=== PATIENT | male | born 1975 | race Caucasian/White ===

== ENCOUNTER 2016-12-26 14:22 | Emergency (ER) | payer OTHER ==
[2016-12-26 14:32] VITALS: RESP 18; TEMP 98.8
[2016-12-26] MEDS ORDERED: HYDROmorphone 2 MG/ML 1 ML SYRINGE IVP STA (14:36)
[2016-12-26] MEDS ORDERED: DIPH,PERTUS(ACELL)TETVAC-LF 0.5 ML VIAL IM ONE (14:36)
[2016-12-26] MEDS ORDERED: ceFAZolin 2 GM in SODIUM CHLORIDE 0.9% 100 ML IVPB STA (14:40)
[2016-12-26] MEDS ORDERED: BUPIVACAINE (PF) 0.25% 30 ML VIAL MISCELLANE STA (14:58)
--- NOTE | 2016-12-26 15:20 | ED ---
General Adult HPI - General Chief complaint: Extremity Injury, Upper Stated complaint: nail in lt hand Time Seen by Provider: 12/26/16 14:33 Source: patient, RN notes reviewed Mode of arrival: ambulatory Limitations: no limitations - History of Present Illness Initial comments: This is a 41-year-old male who presents to the emergency department with chief complaint of nail in left hand. Patient states that approximately an hour and a half prior to arrival he was holding onto a wooden board with his left hand and accidentally shot a nail into the palm of his left hand. Patient currently rates his pain as 11/10. He states that there was minimal bleeding. He reports he can feel the end of the nail at the dorsal aspect of his left hand. He states that sensation is intact throughout his entire hand, however it is difficult and painful to move digits 3-5. Patient states he is unaware if he is up-to-date with his tetanus vaccination. Denies fever, chills, chest pain, shortness of breath, abdominal pain, nausea or vomiting, constipation or diarrhea, dysuria or hematuria, numbness or tingling, headache or vision changes. - Related Data Previous Rx's Medication Instructions Recorded Cephalexin [Keflex] 500 mg PO Q12HR #20 cap 12/26/16 Hydrocodone/Acetaminophen [[place]arrows 1 tab PO Q4HR PRN #20 tab 12/26/16 5-325] Allergies Allergy/AdvReac Type Severity Reaction Status Date / Time No Known Allergies Allergy Verified 12/26/16 14:30 Review of Systems ROS Statement: Those systems with pertinent positive or pertinent negative responses have been documented in the HPI. ROS Other: All systems not noted in ROS Statement are negative. Past Medical History Past Medical History: Asthma, GERD/Reflux History of Any Multi-Drug Resistant Organisms: None Reported Past Surgical History: No Surgical Hx Reported Additional Past Surgical History / Comment(s): WISDOM TEETH REMOVED Past Anesthesia/Blood Transfusion Reactions: Family History of Problems w/ Anesthesia Additional Past Anesthesia/Blood Transfusion Reaction / Comment(s): "MOM GETS LOW BLOOD PRESSURE WITH ANESTHESIA " Past Psychological History: No Psychological Hx Reported Smoking Status: Current every day smoker Past Alcohol Use History: Occasional Past Drug Use History: None Reported - Past Family History Brother(s) Family Medical History: Deep Vein Thrombosis (DVT) Father Family Medical History: Cancer Additional Family Medical History / Comment(s): LYMPHOMA General Exam - General Exam Comments Initial Comments: General: Awake and alert, well-developed; in no apparent distress. HEENT: Head atraumatic, normocephalic. Pupils are equal, round and reactive to light. Extraocular movements intact. Neck: Supple. Normal ROM. Cardiovascular: Regular rate and rhythm. No murmurs, rubs or gallops. Chest symmetrical. Respiratory: Lungs clear to auscultation bilaterally. No wheezes, rales or rhonchi. Normal respiratory effort with no use of accessory muscles. Musculoskeletal: Nail enters patient's left palm proximal to second digit extending at an angle proximally to left fifth digit. End of nail is palpable on dorsal surface of left hand. Radial pulses 2+ equal and palpable bilaterally. Sensation is intact. Active range of motion of fingers are intact however there is difficulty extending and flexing digits 3-5. kin: [place], warm and dry without rashes or lesions. Neurological: Alert and oriented x3. CN II-XII grossly intact. Speech is fluent and answers are appropriate. No focal neuro deficits. Psychiatric: Normal mood and affect. No overt signs of depression or anxiety noted. Limitations: no limitations Course Vital Signs 12/26/16 14:30 Temperature 98.8 F Pulse Rate 78 Respiratory 18 Rate Blood Pressure 142/82 O2 Sat by Pulse 97 Oximetry Medical Decision Making - Medical Decision Making This is a 41-year-old male who presents with complaint of nail in palm of left hand. At approximately 1530 an attempt was made to remove the nail from the hand but it was unsuccessful. After re-review of the x-ray orthopedics was consulted. Orthopedics was consulted and recommended that nail be removed in the ER as there is no indication for open surgery. At approximately 1630 nail was removed from the hand after numbing with bupivacaine and lidocaine. There was moderate amount of bleeding but it is well-controlled at this time. Patient will be discharged home with a prescription for Keflex to be taken for 10 days. He received an up-to-date tetanus booster while in the ED as well as received Ancef and Dilaudid for pain management. Patient is in no acute distress at this time and is in agreement to the plan. He voices understanding. All questions were answered. He is provided with a referral to orthopedics. - Radiology Data Radiology results: report reviewed Left hand x-ray findings: There is a foreign body compatible with a nail extending across the metacarsals of the second through fifth digits. Could not exclude a tear within the substance of the bone of the fourth or fifth digit. The joint spaces are preserved and there is no dislocation. Disposition Clinical Impression: Injury of left palm by nail gun Disposition: HOME SELF-CARE Condition: Good Instructions: Soft Tissue Foreign Body (ED) Additional Instructions: Please take medications as prescribed. Please follow-up with orthopedics in 1- 2 days. Please follow up with primary care provider within 1-2 days. Return to emergency department if symptoms should worsen or any concerns arise. Prescriptions: Cephalexin [Keflex] 500 mg PO Q12HR #20 cap Hydrocodone/Acetaminophen [[place] 5-325] 1 tab PO Q4HR PRN #20 tab PRN Reason: Pain Referrals: Mary Scott MD [Primary Care Provider] - 1-2 days Tu Damon DO [Doctor of Osteopathic Medicine] - 1-2 days Time of Disposition: 16:46
--- NOTE | 2016-12-26 15:24 | XR ---
EXAMINATION TYPE: XR hand complete LT DATE OF EXAM: 12/26/2016 COMPARISON: NONE HISTORY: Pain TECHNIQUE: Three views are submitted. FINDINGS: There is a foreign body compatible with a nail extending across the metatarsals of the second through fifth digits. Could not exclude a tear within the substance the bone of the fourth or fifth digit. T he joint spaces are preserved and there is no dislocation. IMPRESSION: 1. Foreign body as discussed above.
[2016-12-26 17:19] VITALS: BP 138/70; PULSE 77
== END 2016-12-26 17:09 | disposition home or self-care (01) ==
LOC: EC 14:22
DX: S60.552A Superficial foreign body of left hand, initial encounter (principal); F17.200 Nicotine dependence, unspecified, uncomplicated; Z23 Encounter for immunization; W45.0XXA Nail entering through skin, initial encounter
CPT/HCPCS: 99283 ×2; 96365 ×2; 96375 ×2; 90471 ×2; 73130; 90715; J1170; J0690

== ENCOUNTER → 2018-05-21 | Outpatient (CLI) | payer OTHER ==
--- NOTE | 2018-05-21 11:26 | XR ---
EXAM TYPE: LUMBAR SPINE X RAY SERIES COMPARISON: NONE HISTORY: Back pain TECHNIQUE: 4 views are submitted. FINDINGS: Alignment is anatomic. The pedicles are intact. The transverse processes are intact. There is no s pondylolysis or spondylolisthesis. Surgical clips in the right upper quadrant. Diffuse osteopenia. A rthropathy of the facet joints at levels L3-S1. Is a chronic appearing wedge deformity L1 and T12. Hy pertrophic spurring and multilevel degenerative disc disease. IMPRESSION: 1. Multilevel degenerative disc disease. There are mild wedge fracture of T12 and L1 likely subacute to chronic. Correlate with MRI.
== END | disposition home or self-care (01) ==
LOC: RADXRYALE 10:57
PROVIDERS: ATTEND Internal Medicine
DX: S32.010A Wedge compression fracture of first lumbar vertebra, initial encounter for closed fracture (principal); M51.36 Other intervertebral disc degeneration, lumbar region
CPT/HCPCS: 72110

== ENCOUNTER → 2018-06-04 | Outpatient (CLI) | payer OTHER ==
--- NOTE | 2018-06-04 11:56 | MR ---
EXAMINATION TYPE: MR lumbar spine wo con DATE OF EXAM: 06/04/2018 COMPARISON: 05/21/2018 HISTORY: Low back pain into rt buttocks, Fell on ice TECHNIQUE: Multiplanar, multisequence images of the lumbar spine were acquired. FINDINGS: The lumbar spine vertebral bodies maintain normal alignment. There is mild compression defo rmity of the anterior endplate of L1 with height loss of approximately 20%. There is no bone marrow e willard and therefore this is a chronic finding without retropulsion. Small anterior osteophytes are see n throughout the lumbar spine. L1-L2: There is a small broad-based disc bulge without spinal canal stenosis nor neural foraminal annie rowing. L2-L3: There is a small central disc herniation/protrusion and mild facet arthropathy narrowing the v entral subarachnoid space and minimally impressing upon the ventral thecal sac without significant sp inal canal stenosis. No neural foraminal narrowing. L3-L4: There is facet arthropathy and ligamentum flavum buckling and comminution with a broad-based d isc bulge mildly narrowing the transverse dimension of the spinal canal. No neural foraminal narrowin g. L4-L5: There is a broad-based disc bulge and facet arthropathy with ligamentum flavum buckling result ing in very minimal neural foraminal narrowing. No spinal canal stenosis. L5-S1: Facet arthropathy and disc desiccation is seen. No spinal canal stenosis nor neural foraminal narrowing. IMPRESSION: 1. Chronic mild compression deformity of the L1 vertebral body without retropulsion. No bone marrow e willard. 2. Small central disc herniation at L2-L3 minimally narrowing the ventral subarachnoid space without significant spinal canal stenosis nor neural foraminal narrowing. 3. Mild transverse dimension narrowing of the spinal canal at L3-L4 secondary to ligamentum flavum bu ckling and facet arthropathy. 4. Mild multilevel degenerative disc disease of the lumbar spine resulting in minimal neural foramina l narrowing bilaterally at L4-L5.
== END | disposition home or self-care (01) ==
LOC: RADMRIMAIN 10:50
PROVIDERS: ATTEND Internal Medicine
DX: M48.061 Spinal stenosis, lumbar region without neurogenic claudication (principal); M51.26 Other intervertebral disc displacement, lumbar region; M51.36 Other intervertebral disc degeneration, lumbar region; M43.8X6 Other specified deforming dorsopathies, lumbar region; M46.96 Unspecified inflammatory spondylopathy, lumbar region; M24.28 Disorder of ligament, vertebrae
CPT/HCPCS: 72148

== ENCOUNTER → 2018-06-27 | Outpatient (CLI) | payer OTHER ==
[2018-06-26 14:36] VITALS: BMI 35.9
[2018-06-27 10:02] VITALS: BP 160/100; PULSE 89; RESP 18
--- NOTE | 2018-06-27 11:10 | P.PAINCN ---
History of Present Illness - Reason for Consult Consult date: 06/27/18 - History of Present Illness initial consultation visit for this 43-year-old man with a chronic history of severe low back pain, pain started 1 years ago, after he fell on ice, he continued to have severe low back pain, the pain is constant and increases with any activity patient reported that he never had any surgery on his back he never had any interventional pain management, and he used muscle relaxants Flexeril 10 mg twice a day and Motrin, he has no benefit from it, the pain is constant and increases with any activity, he denies any motor or sensory deficit and he denies any numbness or tingling sensation in his lower extremities, no fever or night sweats, he never tried physical therapy Past Medical History Past Medical History: Asthma, GERD/Reflux, Hypertension History of Any Multi-Drug Resistant Organisms: None Reported Past Surgical History: Cholecystectomy Additional Past Surgical History / Comment(s): WISDOM TEETH REMOVED Past Anesthesia/Blood Transfusion Reactions: Family History of Problems w/ Anesthesia Additional Past Anesthesia/Blood Transfusion Reaction / Comm: "MOM GETS LOW BLOOD PRESSURE WITH ANESTHESIA " Past Psychological History: No Psychological Hx Reported Smoking Status: Current every day smoker Past Alcohol Use History: Occasional Additional Past Alcohol Use History / Comment(s): STARTED SMOKING AT AGE 18 S MOKES 3/4 PPD Past Drug Use History: None Reported - Past Family History Brother(s) Family Medical History: Deep Vein Thrombosis (DVT) Father Family Medical History: Cancer Additional Family Medical History / Comment(s): LYMPHOMA Medications and Allergies Home Medications Medication Instructions Recorded Confirmed Type Albuterol Inhaler [Ventolin Hfa 1 - 2 puff INHALATION RT-Q6H PRN 06/27/18 06/27/18 History Inhaler] Albuterol Sulfate [Accuneb] 0 mg INHALATION DIRECTED PRN 06/27/18 06/27/18 History Triamterene-Hctz 37.5-25Mg 1 cap PO DAILY 06/27/18 06/27/18 History [Dyazide 37.5-25 Capsule] busPIRone HCl [Buspar] 10 mg PO BID 06/27/18 06/27/18 History Allergies Allergy/AdvReac Type Severity Reaction Status Date / Time No Known Allergies Allergy Verified 06/26/18 14:30 Physical Exam Vitals: Vital Signs Pulse Resp BP Pulse Ox 06/27/18 09:54 89 18 160/100 96 Social history : smoker , ETOH social , NO Illegal drugs use . Review of Systems : - Constitutional : no chills , no fever , no night sweats , - Ears : no ear discharge , no change in hearing -Nose, Mouth ,Throat ; no bleeding gums, no sore throat , no epistaxis , -Cardiovascular : Denies chest pain, , no orthopnea , no palpitation -Respiratory : Denies cough , no dyspnea , no hemoptysis -Gastrointestinal :, no change in bowel habits , no coffee- ground emesis . -Genitourinary : No hematuria , no discharge , no incontinence, -Musculoskeletal : No gait dysfunction , report low back pain , - Neurological : no ataxia , no tremor , no sezure , -Psychatric , no suicidal ideation no hallucination - Endocrine : no cold intolerence , no polyuria , no polydypsia , -Hematologic : no easy bleeding , no easy brusing , -Allergic / immunology : no angioedema , no wheezing ,no allergic rhinitis -Integumentary : no brttle nails , no change hair / nails , no foot/leg ulcers . Physical Examinations : -Constitutional : Cooperative , not in acute distress . -HEENT : nech ; supple , no Lymphadenopathy , no Thyromegaly , :eyes , no icterus, no photophobia . ENT : , normal oropharynx , no Thrush - Respiratory : Chest clear to auscultations Bilaterally , no wheezing . - Cardiovascular : regular rate and rhythem , S1 , S2 , no S3 , no S4. - Gastrointestinal: abdomen soft no tenderness , no organomegally . - Genitourinary : Defferred . -Integumentary : No cellulitis , no ulcers , normal skin turgor , no cyanotic . - neurologic : Cranial nerve II to XII intact , no focal neurological deffecit -psychatric : alert , oriented X 3 , appropriate affect , intact judgment and insight . -Lymphatic : no Lymphadenopathy. - musculoskeltal: abnormal gait Trigger point identified in the lower thoracic area paravertebral muscles . Lumber spine moter stegnth lower extremities ,thigh and legs 5/5 Right side , 5/5 Left side deep tendon reflexes : normal Knee Jerk , normal ankle Jerk positive lumber facet Loading Test Range of motion of the lumbar spine Flexion 30 degrees, extension 10 degrees strait leg raising test , positive at 30 degree Fabere test positive RT and positive LT . Results Comments: MRI of the lumbar spine= multilevel lumbar bulging disc disease, from L2 to S1, multilevel lumbar facet arthropathy Assessment and Plan Plan: Assessment and plan= multilevel lumbar degenerative disc disease and lumbar spondylosis with lumbar facet arthropathy Myofascial pain syndrome lower thoracic area. Patient will be good candidate to have diagnostic medial branch block lumbar area L2-3/L34/L4 5/L5-S1 x2 and benefits positive and do Radiofrequency ablation of the medial branch. She could benefit from Flexeril 10 mg 3 times a day Time with Patient: Greater than 30 PQRS Measure Charge Sheet Measure #130: Documentation of Current Meds in Medical Chart: Patient's medications documented in chart Measure #226: Tobacco Use: Screen & Cessation Intervention: Pt screened for tobacco use AND intervention given Measure #111: Pneumonia Vaccination: Pneumococcal vaccine administered or previously received Measure #47: Advance Care Plan: Advance care planning discussed & documented, pt chose/unable to give Measure #412: Opioid Treatment Agreement: No documentation of signed opioid treatment agreement Measure #408: Opioid Therapy Follow-up Evaluation: Patient had NO f/u eval minimum every 3 months during opioid therapy Measure #317: Preventitive Care & Scrn High Bld Press & F/U: Pre-hypertensive or hypertensive BP documented, pt will f/u with PCP Measure #128: Body Mass Index (BMI) Screening & Follow-up: BMI documented ABOVE normal parameters - f/u documented Measure #131: Pain Assessment & Follow-up: Pain positive & plan documented, Follow-up scheduled Measure #431: Unhealthy Alcohol Use Preventative Care & Scrn: Patient not identified as an unhealthy alcohol user PQRS Narrative: Smoking Status Current every day smoker Do You Want the Pneumonia Vaccine Up to Date Vaccine AT THIS TIME? Blood Pressure 160/100 Pain Intensity [Lower Back] 9 Scale Used Numeric (1 - 10) Hx Alcohol Use (MH) Yes Home Medications: Ambulatory Orders Albuterol Inhaler [Ventolin Hfa Inhaler] 1 - 2 puff INHALATION RT-Q6H PRN 06/27/18 Albuterol Sulfate [Accuneb] 0 mg INHALATION DIRECTED PRN 06/27/18 Triamterene-Hctz 37.5-25Mg [Dyazide 37.5-25 Capsule] 1 cap PO DAILY 06/27/18 busPIRone HCl [Buspar] 10 mg PO BID 06/27/18
== END | disposition home or self-care (01) ==
LOC: PNWHC3 09:41
PROVIDERS: ATTEND Specialist
DX: G89.29 Other chronic pain (principal); M51.36 Other intervertebral disc degeneration, lumbar region; M47.816 Spondylosis without myelopathy or radiculopathy, lumbar region; M46.96 Unspecified inflammatory spondylopathy, lumbar region; M79.18 Myalgia, other site; F17.210 Nicotine dependence, cigarettes, uncomplicated; Z79.899 Other long term (current) drug therapy
CPT/HCPCS: 99211

== ENCOUNTER 2018-07-24 09:10 | Day surgery (SDC) | payer OTHER ==
[2018-07-19 15:51] VITALS: BMI 35.9
[~2018-07-24 09:10] MED LIST: LACTATED RINGERS 1,000 ML IV SCH
[2018-07-24 09:20] VITALS: TEMP 97.8
[2018-07-24] MEDS ORDERED: LIDOCAINE 1% 20 ML VIAL (10MG/ML) FOR IV START INTRADERMA ONE (09:24)
--- NOTE | 2018-07-24 10:10 | P.PCN ---
Date of Procedure: 07/24/18 Procedure(s) Performed: PREOPERATIVE DIAGNOSIS : 1- Lumbar spondylosis with Facet Arthropathy without myelopathy . 2- Lumber degenerative disc disease POSTOPERATIVE DIAGNOSIS: 1- Lumbar spondylosis with Facet Arthropathy without myelopathy . 2- Lumber degenerative disc disease PROCEDURE: Diagnostic bilateral L2-3 , L3 -4 , L4 -5 , and L5-S1 medial branch block under fluoroscopy ANESTHESIA: moderate sedation with intravenous Versed 2 mg and Fentanyl 100 mcg. EBL: Minimal COMPLICATION: None. IV FLUIDS: 100 mL of normal saline. PROCEDURE INDICATION: Chronic low back pain secondary to Facet arthropathy unresponsive to conservative treatment. PROCEDURE DESCRIPTION: the patient was seen and identified in the preop holding area , risks and benefits and possible complications of the procedure and alternative were discussed with the patient, and the patient agreed to proceed with the procedure and signed the consent IV was started and vital signs monitored during the procedure and fluoroscopy was used to maximize the benefit and accuracy of the needle placement, and sedation was given to decrease patient anxiety, patient was taken to the procedure room and placed in prone position vital signs monitored in the back prepped with chlorhexidine X3 then under strict sterile technique using a right oblique fluoroscopy ,the junction of the transverse process and the superior articulating process of the right L2-3 , L3- 4 , L4- 5, and L5-S1 vertebra which corresponding to the fluoroscopy image of the eye of the Preet dog on the block side for the medial branches and subsequently , after local infiltration of skin and subcu tissuies with Ropivacaine 0.5 % , one mL at each level ,then 22-gauge 5 inches long Quincke-type needles , 4 needle was used , each one of them placed at the junction of the base of the transverse process and the superior articular process at the appropriate level, and the needle was advanced until the periosteum contacted, needle placement confirmed with AP oblique and lateral view and after appropriate needle placement confirmed, and after negative aspiration for heme and CSF and there was no paresthesia 2 mL of Ropivacaine 0.5% mixed with 20 mg Depo-Medrol , then half mL injected at each level after negative aspiration the needle subsequently removed and the same procedure repeated for the left side at left side at L2-3 , L3-4, L4- 5 and L5-S1 levels. At the end of the procedure and the needles removed and a bandage applied after the skin was cleaned the cleaning solution patient taken to recovery room in stable condition and monitors in the recovery room for 20-30 minutes and di scharged home in stable condition after discharge criteria met and patient will follow up with the pain clinic in 2-4 weeks
[2018-07-24] MEDS ORDERED: IV FLUID CONTINUATION 1,000 ML IV ONE (10:14)
[2018-07-24 10:18] VITALS: RESP 18
--- NOTE | 2018-07-24 10:30 | FL ---
EXAMINATION TYPE: FL guided pain mgmt statistic DATE OF EXAM: 07/24/2018 CLINICAL HISTORY: Low back pain. TECHNIQUE: Fluoroscopy. COMPARISON: None. FINDINGS: Fluoroscopic guidance was provided during pain relief procedure performed by Dr. Shaw . A total of 28 seconds of fluoroscopic time was utilized during the procedure and for spot images a re acquired. Images acquired shows needle localization at multiple levels in the lumbar spine. IMPRESSION: As Above.
[2018-07-24 10:33] VITALS: BP 164/88; PULSE 88
== END 2018-07-24 10:46 | disposition home or self-care (01) ==
LOC: ORPAIN 09:10
PROVIDERS: ATTEND Specialist
DX: M47.816 Spondylosis without myelopathy or radiculopathy, lumbar region (principal); G89.29 Other chronic pain; M51.36 Other intervertebral disc degeneration, lumbar region
CPT/HCPCS: 64493; 64494; 64495; J2250; J1030; J3010; 99152

== ENCOUNTER 2018-08-07 06:51 | Day surgery (SDC) | payer OTHER ==
[2018-08-01 15:58] VITALS: BMI 35.9
[2018-08-07 07:09] VITALS: RESP 16; TEMP 97
[2018-08-07 07:14] LABS: Glucose,Whole Blood 131 mg/dL (75-99)
--- NOTE | 2018-08-07 08:08 | P.PCN ---
Date of Procedure: 08/07/18 Procedure(s) Performed: PREOPERATIVE DIAGNOSIS : 1- Lumbar spondylosis with Facet Arthropathy without myelopathy . 2- Lumber degenerative disc disease POSTOPERATIVE DIAGNOSIS: 1- Lumbar spondylosis with Facet Arthropathy without myelopathy . 2- Lumber degenerative disc disease PROCEDURE: Diagnostic bilateral L2-3 , L3 -4 , L4 -5 , and L5-S1 medial branch block under fluoroscopy (#2nd ) ANESTHESIA: moderate sedation with intravenous Versed 2 mg and Fentanyl 100 mcg. EBL: Minimal COMPLICATION: None. IV FLUIDS: 100 mL of normal saline. PROCEDURE INDICATION: Chronic low back pain secondary to Facet arthropathy unresponsive to conservative treatment. PROCEDURE DESCRIPTION: the patient was seen and identified in the preop holding area , risks and benefits and possible complications of the procedure and alternative were discussed with the patient, and the patient agreed to proceed with the procedure and signed the consent IV was started and vital signs monitored during the procedure and fluoroscopy was used to maximize the benefit and accuracy of the needle placement, and sedation was given to decrease patient anxiety, patient was taken to the procedure room and placed in prone position vital signs monitored in the back prepped with chlorhexidine X3 then under strict sterile technique using a right oblique fluoroscopy ,the junction of the transverse process and the superior articulating process of the right L2-3 , L3- 4 , L4- 5, and L5-S1 vertebra which corresponding to the fluoroscopy image of the eye of the Preet dog on the block side for the medial branches and subsequently , after local infiltration of skin and subcu tissuies with Ropivacaine 0.5 % , one mL at each level ,then 22-gauge 5 inches long Quincke-type needles , 4 needle was used , each one of them placed at the junction of the base of the transverse process and the superior articular process at the appropriate level, and the needle was advanced until the periosteum contacted, needle placement confirmed with AP oblique and lateral view and after appropriate needle placement confirmed, and after negative aspiration for heme and CSF and there was no paresthesia 2 mL of Ropivacaine 0.5% mixed with 20 mg Depo-Medrol , then half mL injected at each level after negative aspiration the needle subsequently removed and the same procedure repeated for the left side at left side at L2-3 , L3-4, L4- 5 and L5-S1 levels. At the end of the procedure and the needles removed and a bandage applied after the skin was cleaned the cleaning solution patient taken to recovery room in stable condition and monitors in the recovery room for 20-30 minutes and discharged home in stable condition after discharge criteria met and patient will follow up with the pain clinic in 2-4 weeks
[2018-08-07] MEDS ORDERED: IV FLUID CONTINUATION 1,000 ML IV ONE (08:15)
[2018-08-07 08:40] VITALS: BP 166/91; PULSE 76
--- NOTE | 2018-08-07 08:47 | FL ---
Fluoroscopy INDICATION: Pain FINDINGS: Fluoroscopy time: 26 seconds. Images obtained: 4. IMPRESSIONS: 1. Documentation of fluoroscopy.
== END 2018-08-07 08:54 | disposition home or self-care (01) ==
LOC: ORPAIN 06:51
PROVIDERS: ATTEND Specialist
DX: M47.816 Spondylosis without myelopathy or radiculopathy, lumbar region (principal); G89.29 Other chronic pain; M51.36 Other intervertebral disc degeneration, lumbar region; I10 Essential (primary) hypertension; J45.909 Unspecified asthma, uncomplicated
CPT/HCPCS: 64493; 64494; 64495; J2250; J1030; J3010; 99152

== ENCOUNTER → 2018-08-21 | Outpatient (CLI) | payer OTHER ==
[2018-08-21 11:08] VITALS: BP 159/99; PULSE 77; RESP 18
--- NOTE | 2018-08-21 11:16 | P.PN ---
Subjective Progress Note Date: 08/21/18 This is a 43-year-old male with history of axial lower back pain status post 2 lumbar medial branch block. The patient had more than 80% of pain relief. 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 The patient feels numbness and tingling and recent pain in his right leg down to the right foot with prolonged walking. Today, pt denies new-onset weakness, bowel/bladder incontinence, or any other signs or symptoms of cauda equina syndrome. There are no signs of acute intoxication, and no indications of medication diversion or overuse. In addition to above, 13-point review of systems is also negative for chest pain, shortness of breath, changes in vision, changes in hearing, new onset weakness, abdominal pain, diarrhea, extreme fatigue, malaise, fever, skin changes, homicidal or suicidal ideation, or bowel or bladder incontinence. Vital Signs: Reviewed in EMR Gen: AAOx3, NAD HEENT: PERRLA,hearing grossly normal Pulm: resp unlabored,CTA Heart:S1,S2, No Mur Neck: supple, trachea midline Neuro exam of the lower extremities: Within normal limits Straight leg raising test: Dilan's test: Range of motion of the lumbar spine: Facet loading test: Tenderness in the paravertebral musculature: Positive tenderness on the right side of his lumbar spine Neuro: CN II-XII grossly intact, Imaging: Reviewed in EMR/chart Assessment: Lumbar spondylosis without myelopathy right lumbar radiculopathy with prolonged ambulation Plan: 1. Explanation: Opioid and psychological risk scores were reviewed. Diagnoses, prognoses, and multiple treatment options including but not limited to physical therapy, interventional therapies, adjuvant medical therapies, narcotic medication therapies, and surgery were discussed with the patient and all questions were answered to the patient's satisfaction. 2. Opioid agreement: We don't prescribe opioids 3. Counseling: The patient was counseled extensively on SMOKING CESSATION, BODY MASS INDEX, EXERCISE. Specifically, the patient was instructed regarding the importance of smoking cessation, obesity, and exercise in the context of both chronic pain and overall health. 4. Procedures: Scheduled for right lumbar medial branch RFA for levels L3 4, L4-L5, and L5-S1 under fluoroscopic guidance 5. Consultations: None 6. Investigations: None 7. Medications: None 8. Disposition: Return to the above-mentioned procedure as soon as possible 9. Maps were reviewed and were appropriate. PQRS measures: 1-Patient's medications are documented in the chart. 2-Tobacco use is negative, counseling given 3-Patient has not had a pneumococcal vaccine. 4-Advanced care planning discussed, patient unable to give 5-Opioid contract signed with the patient. 6-Pain positive, follow-up visit or procedure scheduled 7-Patient's blood pressure measured and documented above normal limits. The patient will follow up with his primary care physician. 8-Patient's weight was measured, and body mass index ABOVE the normal limits, and counseling was done. Patient instructed to follow up with PCP. 9-Patient WAS NOT identified as an unhealthy alcohol user. Objective - Vital Signs Vital signs: Intake & Output 08/20/18 08/21/18 08/21/18 18:59 06:59 18:59 Weight 127.006 kg
== END | disposition home or self-care (01) ==
LOC: PNWHC3 10:51
PROVIDERS: ATTEND Anesthesiology
DX: M47.26 Other spondylosis with radiculopathy, lumbar region (principal)
CPT/HCPCS: 99211

== ENCOUNTER 2018-08-28 09:54 | Day surgery (SDC) | payer OTHER ==
[2018-08-22 15:10] VITALS: BMI 35.9
[2018-08-28] MEDS ORDERED: LIDOCAINE 1% 20 ML VIAL (10MG/ML) FOR IV START INTRADERMA ONE (10:11)
[2018-08-28 10:12] VITALS: TEMP 97.2
--- NOTE | 2018-08-28 11:05 | P.PCN ---
Date of Procedure: 08/28/18 Surgeon: Orlando Cerda Pathology: none sent Condition: stable Disposition: PACU Description of Procedure: PREOPERATIVE DIAGNOSIS: Lumbar spondylosis without myelopathy, morbid obesity POSTOPERATIVE DIAGNOSIS: Lumbar spondylosis without myelopathy,morbid obesity PROCEDURES : Right Radiofrequency thermocoagulation L3-L4, L4-L5, and L5-S1 medial branch, with fluoroscopic guidance ANESTHESIA: IV moderate conscious sedation with versed and fentanyl and local infiltration with lidocaine 1% 5 ml EBL: Minimal PROCEDURE INDICATION: The patient with low back pain secondary to lumbar facet arthropathy who had more than 50% relief of her pain with previous diagnostic lumbar medial branch block with bupivacaine. PROCEDURE DESCRIPTION / TECHNIQUE: The patient was seen and identified in the preoperative area. Risks, benefits, complications, including but not limited to risk of infection ,bleeding , allergic reactions to the medications and no complete pain relief , and alternatives were discussed with the patient, the patient agreed to proceed with the procedure and signed the consent. IV was started. Vital signs remained stable throughout the procedure. Patient was taken to the OR and time out was completed. The patient was placed in the prone position on the procedure table. The lumber area was prepped and draped in the usual sterile fashion. . Vital signs were closely monitored during the procedure .IV sedation was used during the procedure to decrease patients anxiety. The target points were identified as follows: For the L5-S1 level which corresponds to the dorsal ramus of L5 the target point was at the superior medial aspect of the sacral ala on the Rt side of the spine on the AP view of fluoroscopy and for the L2, L3, and L4 medial branches the target points were at the connection between the transverse process and the superior articular process of L3, L4, and L5 vertebra respectively on the Rt oblique view of fluoroscopy. skin was marked, and localized with 1% lidocaine at these points. Subsequently, an 18 [id number] radiofrequency needles with a 10-mm curved active tips were advanced guided by fluoroscopy to each of the target points mentioned above in a superior medial direction to get the active tips as parallel as possible to the medial branches tracks. AP, oblique, and lateral views of fluoroscopy were used to verify needle tips position. Each level then underwent motor testing at 2.5 Hz and 0 to 3 volt with local stimulation, but no radicular symptoms down the legs. Thereafter radiofrequency thermocoagulation at 80 degrees celsius for 90 seconds after injecting 1 ml of PF Marcaine 0.5%(3 mls) with 20 mg of Kenalog. At the end of the procedure, the skin was cleansed and bandages were applied. COMPLICATIONS: No acute complications. DISPOSITION / PLANS: The patient was placed in a supine position and transferred to the recovery area in a stable condition for observation and was discharged from the recovery room after meeting discharge criteria. Home discharge instructions given to the patient by the staff. The patient was reexamined prior to discharge. The patient will schedule a follow up in the clinic in 2-4 weeks.
[2018-08-28] MEDS ORDERED: IV FLUID CONTINUATION 1,000 ML IV ONE (11:10)
[2018-08-28 11:18] VITALS: RESP 18
[2018-08-28 11:38] VITALS: BP 131/78; PULSE 78
--- NOTE | 2018-08-28 14:50 | FL ---
EXAMINATION TYPE: FL guided pain mgmt statistic DATE OF EXAM: 08/28/2018 FLUOROSCOPY Fluoroscopy time of 21 seconds was used during lumbar radiofrequency ablation. 4 image/s document/s the procedure.
== END 2018-08-28 11:42 | disposition home or self-care (01) ==
LOC: ORPAIN 09:54
PROVIDERS: ATTEND Anesthesiology
DX: M47.816 Spondylosis without myelopathy or radiculopathy, lumbar region (principal); E66.01 Morbid (severe) obesity due to excess calories; Z68.35 Body mass index [BMI] 35.0-35.9, adult
CPT/HCPCS: 64635; 64636; 99152

== ENCOUNTER → 2018-09-18 | Outpatient (CLI) | payer OTHER ==
[2018-09-18 14:14] VITALS: BP 146/97; PULSE 113; RESP 20
--- NOTE | 2018-09-18 14:44 | P.PAINPG ---
Subjective Progress Note Date: 09/18/18 This is a 43-year-old male with history of axial lower back pain status post right L3-4, L4-5, L5-S1 radiofrequency ablation done on 08/28/2018. He reports no pain relief from this procedure, and notes that his pain is actually higher in location to where the procedure was performed. The pain is located in the upper lumbar region with radiation to the right paraspinal musculature and occasionally into the right buttock. His upper back pain is worse than his buttock pain. He continues to use baclofen with some amount of pain relief. Today, pt denies new-onset weakness, bowel/bladder incontinence, or any other signs or symptoms of cauda equina syndrome. There are no signs of acute intoxication, and no indications of medication diversion or overuse. In addition to above, 13-point review of systems is also negative for chest pain, shortness of breath, changes in vision, changes in hearing, new onset weakness, abdominal pain, diarrhea, extreme fatigue, malaise, fever, skin changes, homicidal or suicidal ideation, or bowel or bladder incontinence. Vital Signs: Reviewed in EMR Gen: AAOx3, NAD HEENT: PERRLA,hearing grossly normal Pulm: resp unlabored Heart: No pedal edema Neck: No gross lymphadenopathy Neuro exam of the lower extremities: Within normal limits Straight leg raising test: Negative Dilan's test: Negative Range of motion of the lumbar spine: Limited in lumbar extension Facet loading test: Positive on the right for upper lumbar pain Tenderness in the paravertebral musculature: Positive tenderness on the upper right side of his lumbar spine Neuro: CN II-XII grossly intact, Imaging: Lumbar spine x-ray shows chronic appearing wedge deformity of T12 and L1. MRI lumbar spine shows chronic mild compression deformity of L1 vertebral body without retropulsion, mild multilevel degenerative disc disease resulting in minimal neural foraminal stenosis bilaterally at L4-L5, small central disc herniation at L2-3 and mild narrowing of the spinal canal at L3-L4. Assessment: Lumbar spondylosis without myelopathy Chronic compression fracture of L1 vertebral Plan: 1. Explanation: Opioid and psychological risk scores were reviewed. Diagnoses, prognoses, and multiple treatment options including but not limited to physical therapy, interventional therapies, adjuvant medical therapies, narcotic medication therapies, and surgery have been discussed with the patient and all questions were answered to the patient's satisfaction. 2. Opioid agreement: We don't prescribe opioids. Prescription for Flexeril re- written today 3. Counseling: None 4. Procedures: Scheduled for right lumbar medial branch at T12, L1, L2 5. Consultations: None 6. Investigations: None 7. Medications: None 8. Disposition: Return to the above-mentioned procedure as soon as possible Objective - Vital Signs Vital signs: Vital Signs Temp Pulse 113 H 09/18/18 14:06 Resp 20 09/18/18 14:06 BP 146/97 09/18/18 14:06 Pulse Ox 96 09/18/18 14:06 Intake & Output 09/17/18 09/18/18 09/18/18 18:59 06:59 18:59 Weight 127.006 kg PQRS Measure Charge Sheet Measure #130: Documentation of Current Meds in Medical Chart: Patient's medications documented in chart Measure #226: Tobacco Use: Screen & Cessation Intervention: Pt screened for tobacco use AND intervention given Measure #111: Pneumonia Vaccination: Pneumococcal vaccine NOT administered or previously given Measure #47: Advance Care Plan: Advance care planning discussed & documented, pt chose/unable to give Measure #412: Opioid Treatment Agreement: No documentation of signed opioid treatment agreement Measure #317: Preventitive Care & Scrn High Bld Press & F/U: Pre-hypertensive or hypertensive BP documented, pt will f/u with PCP Measure #128: Body Mass Index (BMI) Screening & Follow-up: BMI documented ABOVE normal parameters - f/u documented Measure #131: Pain Assessment & Follow-up: Pain positive & plan documented, Follow-up scheduled Measure #431: Unhealthy Alcohol Use Preventative Care & Scrn: Patient not identified as an unhealthy alcohol user PQRS Narrative: Smoking Status Current every day smoker Blood Pressure 146/97 Pain Intensity [Right Lower 9 Back] Scale Used Numeric (1 - 10) Hx Alcohol Use (MH) Yes Home Medications: Ambulatory Orders Albuterol Inhaler [Ventolin Hfa Inhaler] 1 - 2 puff INHALATION RT-Q6H PRN 06/27/18 Albuterol Sulfate [Accuneb] 0 mg INHALATION DIRECTED PRN 06/27/18 Triamterene-Hctz 37.5-25Mg [Dyazide 37.5-25 Capsule] 1 cap PO DAILY 06/27/18 busPIRone HCl [Buspar] 10 mg PO BID 06/27/18 Cyclobenzaprine [Flexeril] 10 mg PO BID 30 Days #60 tab 09/18/18 Controlled Substance Measures - Controlled Substance Measures Is patient prescribed a controlled substance at discharge?: No
== END ==
LOC: PNWHC3 13:57
PROVIDERS: ATTEND Anesthesiology
DX: M47.816 Spondylosis without myelopathy or radiculopathy, lumbar region (principal); M48.56XD Collapsed vertebra, not elsewhere classified, lumbar region, subsequent encounter for fracture with routine healing; F17.200 Nicotine dependence, unspecified, uncomplicated; Z98.890 Other specified postprocedural states
CPT/HCPCS: 99211

== ENCOUNTER 2018-10-03 07:47 | Day surgery (SDC) | payer OTHER ==
[2018-10-03 08:05] VITALS: TEMP 97.3
--- NOTE | 2018-10-03 08:58 | P.PCN ---
Date of Procedure: 10/03/18 Procedure(s) Performed: PREOPERATIVE DIAGNOSIS : Lumbar spondylosis with Facet Arthropathy without myelopathy POSTOPERATIVE DIAGNOSIS: same PROCEDURE: First Diagnostic lumbar medial branch block with fluoroscopy at right T12, L1, L2 which covers facets L1- L2 and L2-L3 ANESTHESIA: Local anesthetic; moderate IV sedation with Versed 2 mg Fluoroscopy was used for the procedure and images were saved in the radiology portion of the chart. Surgeon: Tobi Royal MD PROCEDURE INDICATION: Lumbar back pain without radiculopathy, not responsive to conservative management. PROCEDURE DESCRIPTION: the patient was seen and identified in the preop holding area , risks and benefits and possible complications of the procedure and alternatives were discussed with the patient, and the patient agreed to proceed with the procedure and signed the consent . IV was started , vital signs were monitored during the procedure and fluoroscopy was used to maximize the benefit and accuracy of the needle placement, and sedation was given to decrease patient anxiety. Patient was taken to the procedure room and placed in prone position. The lumbar region was prepped using chlorhexidineX-2. Under strict sterile technique , using ipsilateral oblique fluoroscopy ,the junction of the transverse process and the superior articulating process of the T12, L1, L2 vertebra which corresponds to the fluoroscopy image of the eye of the Preet dog for the medial branches were identified. Subsequently, after local infiltration of skin with lidocaine 1% 0.2 mL at each level , a 25-gauge 3.5" Quincke-type needle was placed at the junction of the base of the transverse process and the superior articular process at the appropriate level as well as the sacral ala, and the needle was advanced until the periosteum contacted, needle placement confirmed with oblique fluoroscopy, 0.2 mL of Isovue 200 per level was injected which revealed no vascular uptake and after negative aspiration, 0.5 mL of lidocaine 4% was injected at each level and the needle subsequently removed . At the end of the procedure and the needles were removed and a bandage applied after the skin was cleaned. The patient was taken to recovery room in stable condition and monitors in the recovery room for 20-30 minutes and discharged home in stable condition after discharge criteria met and patient will follow up for repeat procedure in 2 weeks EBL: Minimal COMPLICATION: None.
[2018-10-03] MEDS ORDERED: IV FLUID CONTINUATION 850 ML IV ONE (08:59)
[2018-10-03 09:03] VITALS: RESP 18
[2018-10-03 09:15] VITALS: BP 114/80; PULSE 76
--- NOTE | 2018-10-03 09:23 | FL ---
EXAMINATION TYPE: FL guided pain mgmt statistic DATE OF EXAM: 10/03/2018 CLINICAL HISTORY: Low back pain. TECHNIQUE: Fluoroscopy. COMPARISON: None. FINDINGS: Fluoroscopic guidance was provided during pain relief procedure performed by Dr. Royal . A total of 6 seconds of fluoroscopic time was utilized during the procedure and two spot images are acq uired. Images acquired shows needle localization with contrast injection at L1 level. IMPRESSION: As Above.
--- NOTE | 2018-10-29 12:42 | CDI ---
Outpatient Documentation Clarification Form Date: 10/29/18 CDS/[employer]ing [employer]s Sales Manager Name: Denana Eric Phone: If any questions, call Mary Lemus Vice President Network Development at [phone] Patient Name: Jeremiah Ortega Admit Date: 10/03/18 Discharge Date: 10/03/18 ATTENTION: The [facility] Coding Staff appreciate your assistance in clarifying documentation. Please respond to the clarification below the line at the bottom and electronically sign. The [facility] Coding staff will review the response and follow-up if needed. Please note: Queries are made part of the Legal Health Record. If you have any questions, please contact the Vice President Network Development. Dear Dr. Royal, In order to provide thorough documentation for billing of 3 levels, please provide an addendum to your operative note. I understand that you previously did an addendum but it did not contain enough information to support that 3 levels were done. I may not have the correct levels. I also realize the Eduarda Burnett has already requested the second addendum but our procedure dictates that this type of request be in the form of a query. Thank you for your kind consideration. Targeted areas-medial branches at right T12, L1, L2. 3 medial branches were blocked. MTDD
== END 2018-10-03 09:29 | disposition home or self-care (01) ==
LOC: ORPAIN 07:47
PROVIDERS: ATTEND Anesthesiology
DX: M47.26 Other spondylosis with radiculopathy, lumbar region (principal); Z79.899 Other long term (current) drug therapy; S32.019A Unspecified fracture of first lumbar vertebra, initial encounter for closed fracture; F17.200 Nicotine dependence, unspecified, uncomplicated
CPT/HCPCS: 64493; 64494; J2250; Q9966; 64490; 64491; 64495; 99152

== ENCOUNTER 2018-10-17 07:36 | Day surgery (SDC) | payer OTHER ==
[2018-10-11 15:51] VITALS: BMI 34.9
[2018-10-17 08:15] VITALS: RESP 18; TEMP 97.6
[2018-10-17] MEDS ORDERED: LIDOCAINE 1% 20 ML VIAL (10MG/ML) FOR IV START INTRADERMA ONE (08:25)
--- NOTE | 2018-10-17 08:56 | P.PCN ---
Date of Procedure: 10/17/18 Procedure(s) Performed: PREOPERATIVE DIAGNOSIS : 1- thoracic and Lumbar spondylosis with Facet Arthropathy without myelopathy . POSTOPERATIVE DIAGNOSIS: Same as preop diagnosis PROCEDURE: Diagnostic Right T12 , L1 ,, and L2 medial branch block under fluoroscopy guidance (fluoroscopy images available in the radiology Department ) ANESTHESIA: Local with Ropivacain 0.5 % 6 ml , moderate sedation with intravenous Versed 2 mg and Fentanyl 50 mcg. EBL: Minimal COMPLICATION: None. IV FLUIDS: 100 mL of normal saline. PROCEDURE INDICATION: Chronic low back pain secondary to Facet arthropathy unresponsive to conservative treatment. PROCEDURE DESCRIPTION: the patient was seen and identified in the preop holding area , risks and benefits and possible complications of the procedure and alternative were discussed with the patient, and the patient agreed to proceed with the procedure and signed the consent IV was started and vital signs monitored during the procedure and fluoroscopy was used to maximize the benefit and accuracy of the needle placement, and sedation was given to decrease patient anxiety, patient was taken to the procedure room and placed in prone position vital signs monitored in the back prepped with chlorhexidine X3 then under strict sterile technique using a right oblique fluoroscopy ,the junction of the transverse process and the superior articulating process of the right T12 , L1 , and L2 vertebra which corresponding to the fluoroscopy image of the eye of the Preet dog on the block side for the medial branches and subsequently , after local infiltration of skin and subcu tissuies with Ropivacaine 0.5 % , one mL at each level ,then 25-gauge Quincke-type needles , 3 needle was used , each one of them placed at the junction of the base of the transverse process and the superior articular process at the appropriate level, and the needle was advanced until the periosteum contacted, needle placement confirmed with AP oblique and lateral view and after appropriate needle placement confirmed, and after negative aspiration for heme and CSF and there was no paresthesia 1-1/2 mL of Ropivacaine 0.5% mixed with 40 mg Depo-Medrol , then half mL injected at each level after negative aspiration the needle subsequently removed . At the end of the procedure and the needles removed and a bandage applied after the skin was cleaned the cleaning solution patient taken to recovery room in stable condition and monitors in the recovery room for 20-30 minutes and discharged home in stable condition after discharge criteria met and patient will follow up with the pain clinic in 2-4 weeks
[2018-10-17] MEDS ORDERED: IV FLUID CONTINUATION 1,000 ML IV ONE (08:59)
--- NOTE | 2018-10-17 09:11 | FL ---
EXAMINATION TYPE: FL guided pain mgmt statistic DATE OF EXAM: 10/17/2018 HISTORY: Flouroscopy time 16 seconds of fluoroscopy provided. IMPRESSION: 1. Fluoroscopy time.
[2018-10-17 09:35] VITALS: BP 148/91; PULSE 68
== END 2018-10-17 09:30 | disposition home or self-care (01) ==
LOC: ORPAIN 07:36
PROVIDERS: ATTEND Specialist
DX: G89.29 Other chronic pain (principal); M47.814 Spondylosis without myelopathy or radiculopathy, thoracic region; M47.816 Spondylosis without myelopathy or radiculopathy, lumbar region
CPT/HCPCS: 64490; 64493; J2250; J1030; J3010; 64494; 64495; 99152

== ENCOUNTER → 2020-02-17 | Outpatient (CLI) | payer OTHER | END | disposition home or self-care (01) | LOC: LABWHC1 16:44 | PROVIDERS: ATTEND Internal Medicine | DX: R05 Cough (principal) | CPT/HCPCS: U0003; C9803 ==

== ENCOUNTER 2020-11-14 03:04 | Emergency (ER) | payer OTHER ==
[2020-11-14 03:15] VITALS: BP 139/79; PULSE 90; RESP 18; TEMP 98.1
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
--- NOTE | 2020-11-14 03:48 | CT ---
EXAMINATION TYPE: CT brain artie wo con DATE OF EXAM: 11/14/2020 COMPARISON: None HISTORY: fall CT DLP: 3.8 mGycm Automated exposure control for dose reduction was used. Ventricles and sulci appear normal. There is no mass effect nor midline shift. There is no sign of in tracranial hemorrhage. Calvarium is intact. There is right parietal scalp soft tissue swelling. There is mucosal thickening in the ethmoid air cells. There is normal aeration of the maxillary sinuses. Cervical vertebra show some straightening. There is degenerative anterior spur formation in the mid a nd lower cervical spine. There is no compression fracture. Facet joints are intact. 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 No fracture. Negative CT scan of the brain. Ethmoid sinusitis. Right parietal scalp soft tissue swelling.
== END 2020-11-14 04:24 | disposition home or self-care (01) ==
LOC: EC 03:04
DX: S00.91XA Abrasion of unspecified part of head, initial encounter (principal); S06.0X9A Concussion with loss of consciousness of unspecified duration, initial encounter; F10.129 Alcohol abuse with intoxication, unspecified; I10 Essential (primary) hypertension; J45.909 Unspecified asthma, uncomplicated; F17.200 Nicotine dependence, unspecified, uncomplicated; Z79.51 Long term (current) use of inhaled steroids; Z79.899 Other long term (current) drug therapy; Y04.8XXA Assault by other bodily force, initial encounter
CPT/HCPCS: 70450; 72125; 99284

== ENCOUNTER 2021-05-31 04:29 | Inpatient (IN) | payer MEDICAID ==
[2021-05-31] MEDS ORDERED: MAG HYDROX/AL HYDROX/SIMETH 30 ML CUP PO PRN (05:14)
[2021-05-31] MEDS ORDERED: LORazepam 1 MG TAB PO PRN (05:14)
[2021-05-31] MEDS ORDERED: MAGNESIUM HYDROXIDE 2,400 MG/10 ML CUP PO PRN (05:14)
[2021-05-31] MEDS ORDERED: ACETAMINOPHEN TAB 325 MG TAB PO PRN (05:14)
[2021-05-31] MEDS ORDERED: HALOPERIDOL LACTATE 5 MG/ML 1 ML VIAL IM PRN (05:14)
[2021-05-31] MEDS ORDERED: LORazepam 2 MG/ML INJ IM PRN (05:25)
[2021-05-31] MEDS ORDERED: haloperidoL 5 MG TAB PO PRN (05:26)
[2021-05-31] MEDS: NICOTINE 14MG/24HR PATCH TRANSDERM SCH (08:51)
--- NOTE | 2021-05-31 14:25 | P.CONS ---
History of Present Illness - Reason for Consult Medical clearance - History of Present Illness Patient admitted for psychiatric issues. Patient presently denied any fever chills, nausea vomiting abdominal pain dysuria patient presently doesn't have any medical complaints Patient does have history of hypertension and asthma and gastroesophageal reflux disease. REVIEW OF SYSTEMS: CONSTITUTIONAL: No fever, no malaise, no fatigue. HEENT: No recent visual problems or hearing problems. Denied any sore throat. CARDIOVASCULAR: No chest pain, orthopnea, PND, no palpitations, no syncope. PULMONARY: No shortness of breath, no cough, no hemoptysis. GASTROINTESTINAL: No diarrhea, no nausea, no vomiting, no abdominal pain. NEUROLOGICAL: No headaches, no weakness, no numbness. HEMATOLOGICAL: Denies any bleeding or petechiae. GENITOURINARY: Denies any burning micturition, frequency, or urgency. MUSCULOSKELETAL/RHEUMATOLOGICAL: Denies any joint pain, swelling, or any muscle pain. ENDOCRINE: Denies any polyuria or polydipsia. The rest of the 14-point review of systems is negative. PHYSICAL EXAMINATION: GENERAL: The patient is alert and oriented x3, not in any acute distress. Well developed, well nourished. HEENT: Pupils are round and equally reacting to light. EOMI. No scleral icterus. No conjunctival pallor. Normocephalic, atraumatic. No pharyngeal erythema. No thyromegaly. CARDIOVASCULAR: S1 and S2 present. No murmurs, rubs, or gallops. PULMONARY: Chest is clear to auscultation, no wheezing or crackles. ABDOMEN: Soft, nontender, nondistended, normoactive bowel sounds. No palpable organomegaly. MUSCULOSKELETAL: No joint swelling or deformity. EXTREMITIES: No cyanosis, clubbing, or pedal edema. NEUROLOGICAL: Gross neurological examination did not reveal any focal deficits. SKIN: No rashes. Assessment and plan -Hypertension once meditations or verified patient will be resumed on his hypertensive medications patient appears to be taking diuretics as well as Norvasc to diltiazem -Asthma without any acute exacerbation patient can be resumed on albuterol isn't as needed -Chronic back pain Past Medical History Past Medical History: Asthma, GERD/Reflux, Hypertension History of Any Multi-Drug Resistant Organisms: None Reported Past Surgical History: Cholecystectomy Additional Past Surgical History / Comment(s): WISDOM TEETH REMOVED. PAIN CLINI C PROCEDURES Past Anesthesia/Blood Transfusion Reactions: Family History of Problems w/ Anesthesia Additional Past Anesthesia/Blood Transfusion Reaction / Comm: "MOM GETS LOW BLOOD PRESSURE WITH ANESTHESIA " Past Psychological History: No Psychological Hx Reported Smoking Status: Current every day smoker Past Alcohol Use History: Heavy Past Drug Use History: None Reported - Past Family History Brother(s) Family Medical History: Deep Vein Thrombosis (DVT) Father Family Medical History: Cancer Additional Family Medical History / Comment(s): LYMPHOMA Medications and Allergies Home Medications Medication Instructions Recorded Confirmed Type Albuterol Inhaler (Mhu) [Ventolin 1 - 2 puff INHALATION RT-Q6H PRN 06/27/18 10/17/18 History Hfa Inhaler] Albuterol Sulfate [Accuneb] 0 mg INHALATION DIRECTED PRN 06/27/18 10/17/18 History Triamterene-Hctz 37.5-25Mg 1 cap PO QAM 06/27/18 10/17/18 History [Dyazide 37.5-25 Capsule] busPIRone HCl [Buspar] 10 mg PO BID 06/27/18 10/17/18 History RX: Cyclobenzaprine [Flexeril] 10 mg PO BID 30 Days #60 tab 09/18/18 10/17/18 Rx Ibuprofen [Motrin] 800 mg PO BID PRN 10/17/18 10/17/18 History RX: amLODIPine [Norvasc] 10/17/18 History Allergies Allergy/AdvReac Type Severity Reaction Status Date / Time amoxicillin Allergy Unknown Verified 11/14/20 03:16 Physical Exam Vitals: Vital Signs Temp Pulse Resp BP Pulse Ox 05/31/21 05:28 97.7 F 82 18 166/100 95 Intake and Output 05/30/21 05/31/21 05/31/21 22:59 06:59 14:59 Other: Weight 110 kg
[2021-05-31] MEDS ORDERED: ALBUTEROL INHALER 60 PUFF/8 GM INHALER (MHU) INHALATION PRN (14:28)
--- NOTE | 2021-05-31 14:35 | P.HP ---
Psychiatric H&P - . 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 HPI: Patient presented to the hospital yesterday as a transfer from [facility]. Patient presented there via EMS apparently for an overdose on Zanaflex and Wellbutrin at home. Patient apparently claims that he has been fighting with his ex-girlfriend and they have been "on and off" for the past year. He states that he has not been a good relationship and he apparently got kicked out of the house by her. He states that he has never had a overdose or suicide attempt in the past. He states that he went to his friend Maricruz's house and overdosed at her house while alone. He claims that he sat down afterwards and does not remember what happened after. He claims that he did not text anyone or tell anyone after he overdosed. He states that "it was stupid" and regretted it shortly after. He states that he does have some problems with depression and anxiety however states that now his mood is "a bit better" since being in the hospital. He states that he started new job recently which has been a positive change for him and is worried about him being fired. He states that his sleep and appetite of an fair. Patient denies any suicidal or homicidal ideations intent or plan. At this time patient denies any auditory or visual hallucinations. Patient denies any flight of ideas racing thoughts and increased in goal directed behavior. Patient admits to using cigarettes daily and also alcohol occasionally. PAST PSYCHIATRIC HISTORY: Patient states that he has a history of depression and anxiety. He claims that he was previously on Wellbutrin in the past. Patient denies any previous psychiatric hospitalizations. Patient denies any psychiatric outpatient follow-up. Patient denies any history of suicide attempts in the past. PMH: Hypertension, chronic pain ALLERGIES: as per EMR CHEMICAL DEPENDENCY HISTORY: as per HPI FAMILY PSYCHIATRIC/SUBSTANCE USE HISTORY: He states that 2 of his cousins committed suicide in the past. SOCIAL HISTORY: Patient was born and raised in [facility]. He states that he is also raised in [facility]. He claims that he completed up to the 12th grade in school. 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 He states that he currently lives with his friend in the house. He denies any lega l history. MENTAL STATUS EXAM: General Appearance: Patient appears to be tall, stated age is alert, directable, and attempts to cooperate. Patient appears to have fair hygiene and grooming. Behavior: Patient is seated without any agitated behavior. Attempts to cooperate. Speech: Patient's speech is fluent and nonpressured. Mood/Affect: Patient reports their mood is depressed, affect is congruent and constricted. Suicidality/Homicidality: Patient denies having any homicidal ideation intent or plan. Denies any suicidal ideations intent or plan Perceptions: Patient denies any visual hallucinations and denies any auditory hallucinations Though content/process: There is no evidence of any delusional thought content and thought process is linear and goal-directed. Memory and concentration: AOX3, grossly intact for the purposes of this session. Can spell "WORLD" backwards Judgment and insight: poor STRENGTHS/WEAKNESSES: strength is that patient is resilient. Weakness is that patient has poor judgment and is impulsive INTELLECT: average IMPRESSIONS: Major depressive disorder, without psychotic features Anxiety disorder unspecified Nicotine dependence PLAN: -Patient is admitted under voluntary status to [facility]HU for stabilization of psychiatric symptoms and safety. Patient has signed adult voluntary form and medication consent and is placed in patient's chart. -Medications : Will start patient on Zoloft 50 mg daily for mood/anxiety. -Ativan and Haldol PRN for agitation/aggression -Patient was informed of the risks, benefits and side effects of the medication and patient verbally consented to taking the medications. Patient signed med consent form and was placed in chart. -Internal Medicine consult to perform medical evaluation and physical. -NRT - nicotine patch -SW on board for discharge planning. Encourage patient to participate in groups to work on coping skills. 05/31/21 14:30
[2021-05-31] MEDS: SERTRALINE 50 MG TAB PO SCH (15:20)
[2021-05-31] MEDS: amLODIPine 5 MG TAB PO SCH (15:20)
[2021-06-01 07:12] VITALS: RESP 16
[2021-06-01] MEDS: NICOTINE 14MG/24HR PATCH TRANSDERM SCH (08:45)
[2021-06-01] MEDS: SERTRALINE 50 MG TAB PO SCH (08:45)
[2021-06-01] MEDS: amLODIPine 5 MG TAB PO SCH (08:46)
[2021-06-01] MEDS: TRIAMTERENE-HCTZ 37.5-25MG 1 EACH CAP PO SCH (08:46)
--- NOTE | 2021-06-01 11:44 | P.PN ---
Progress Note - Text Progress Note Date: 06/01/21 Interval History: Patient was seen wandering the hallways and was directable and agreeable to rosanne haines with hand sign writer in the office. Patient states that he just finished going to groups. He claims that he is taking a lot out of the groups and states that he is also feeling a lot better today. He claims that his anxiety has improved significantly along with his mood. He states that he spoke with his friend Galo and plans to be going back to her house once he is discharged. He states that he had a better sleep last night. He claims that his appetite is improving. He claims that he is still having regret for what he did in terms of the overdose and suicide attempt. At this time patient denies any suicidal or homical ideations, intent or plan. Patient denies any auditory, visual hallucinations and denies any paranoia or delusions. Patient denies any side effects from the medications and has been compliant with meds. Mental Status Exam: General Appearance: Patient appears to be tall, stated age is alert, directable, and attempts to cooperate. Patient appears to have fair hygiene and grooming. Behavior: Patient is seated without any agitated behavior. More cooperative Speech: Patient's speech is fluent and nonpressured. Mood/Affect: Patient reports their mood is improving, affect is congruent Suicidality/Homicidality: Patient denies having any homicidal ideation intent or plan. Denies any suicidal ideations intent or plan Perceptions: Patient denies any visual hallucinations and denies any auditory hallucinations Though content/process: There is no evidence of any delusional thought content and thought process is linear and goal-directed. Memory and concentration: AOX3, grossly intact for the purposes of this session Judgment and insight: improving mildly IMPRESSIONS: Major depressive disorder, without psychotic features Anxiety disorder unspecified Nicotine dependence Plan: -Patient continues to meet criteria for inpatient psychiatric admission for symptom stabilization and safety. Patient has signed adult voluntary form and medication consent and was placed in patient's chart. -Medications: Zoloft 50 mg daily for mood/anxiety. -When necessary Ativan and Haldol for agitation/aggression. -NRT - nicotine patch -SW on board for discharge planning. Encouraged the patient to participate in milieu. carnival worker to contact patient's friend to ensure discharge for tomorrow and he safety planning.
[2021-06-01 18:45] LABS: LDL Cholesterol,Calculated 97.7 mg/dL (0.0-131.0); VLDL Calculation 17.46 mg/dL (5.00-40.00)
[2021-06-02 07:15] VITALS: BP 147/87; PULSE 57; TEMP 97.6
[2021-06-02] MEDS: NICOTINE 14MG/24HR PATCH TRANSDERM SCH (08:25)
[2021-06-02] MEDS: TRIAMTERENE-HCTZ 37.5-25MG 1 EACH CAP PO SCH (08:25)
[2021-06-02] MEDS: amLODIPine 5 MG TAB PO SCH (08:25)
[2021-06-02] MEDS: SERTRALINE 50 MG TAB PO SCH (08:25)
--- NOTE | 2021-06-02 11:12 | P.DS ---
Providers Date of admission: 05/31/21 05:00 Expected date of discharge: 06/02/21 Attending physician: Ricki Nelson MD Consults: 05/31/21 05:14 Consult Physician Routine Consulting Provider: Ernie Kay Consult Reason/Comments: h and p Do you want consulting provider notified?: Yes, Notify in am Primary care physician: Mary Scott - Discharge Diagnosis(es) (1) Major depressive disorder without psychotic features Current Visit: Yes Status: Acute Priority: High (2) Anxiety disorder, unspecified Current Visit: Yes Status: Acute Priority: Medium (3) Nicotine dependence Current Visit: Yes Status: Acute Priority: Low Hospital Course: Admission HPI: Admission note was completed by data analyst report writer "Patient is a 46-year-old female currently lives with his friend and house has 3 kids and 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 Patient presented to the hospital yesterday as a t ransfer from [facility]. Patient presented there via EMS apparently for an overdose on Zanaflex and Wellbutrin at home. Patient apparently claims that he has been fighting with his ex-girlfriend and they have been "on and off" for the past year. He states that he has not been a good relationship and he apparently got kicked out of the house by her. He states that he has never had a overdose or suicide attempt in the past. He states that he went to his friend Maricruz's house and overdosed at her house while alone. He claims that he sat down afterwards and does not remember what happened after. He claims that he did not text anyone or tell anyone after he overdosed. He states that "it was stupid" and regretted it shortly after. He states that he does have some problems with depression and anxiety however states that now his mood is "a bit better" since being in the hospital. He states that he started new job recently which has been a positive change for him and is worried about him being fired. He states that his sleep and appetite of an fair. Patient denies any suicidal or homicidal ideations intent or plan. At this time patient denies any auditory or visual hallucinations. Patient denies any flight of ideas racing thoughts and increased in goal directed behavior. Patient admits to using cigarettes daily and also alcohol occasionally." Hospital course: Upon admission to the unit patient was directable and agreeable to commence treatment and signed adult voluntary form. Patient got along well with other patients on the unit and followed unit protocol. Patient was compliant with the medications and denied any side effects throughout hospital course. Patient was started on Zoloft 50 mg daily for mood/anxiety. Patient spoke of his stressors and engaged in therapy both group and individual. Patient was also seen by medical team for history and physical exam. Throughout the course of the hospitalization patient gradually improved with regards to mood, anxiety, sleep and became more future oriented with improved insight and judgment. On the day of discharge patient denied any suicidal or homicidal ideations intent or plan denied any auditory or visual hallucinations. Patient endorsed wanting to live for his health and family. The patient denied any access to guns or weapons. Patient denied any paranoia and did not endorse any delusions. Patient does not have a significant history of substance abuse however was counseled on abstaining from all substances including alcohol and marijuana. Patient was also counseled on the medications and need for regular compliance and was encouraged to follow-up with their outpatient appointment for mental health and also for primary care. Prior to discharge a family meeting with patients friend Maricruz will be arranged by social work nurse to answer any questions and ensure safety upon discharge. We'll also ensure that there are no guns and weapons at the house where he'll be going to. Mental status exam: General Appearance: Patient appears to be tall, wearing glasses, stated age is alert, pleasant, and cooperative. Patient is in no acute distress and has improved hygiene and grooming Behavior: Patient is calmly seated without any agitated behavior. Speech: Patient's speech is fluent and nonpressured. Mood/Affect: Patient reports their mood is "better", affect is congruent and euthymic. Suicidality/Homicidality: Patient denies having any suicidal or homicidal ideation intent or plan. Perceptions: Patient denies any auditory or visual hallucinations. Though content/process: There is no evidence of any delusional thought content and thought process is linear and goal-directed. more future oriented Memory and concentration: AOX3, grossly intact for the purposes of this session. Can spell "WORLD" backwards correctly. Judgment and insight: improved with guarded prognosis Impression: Major depressive disorder, without psychotic features Anxiety disorder unspecified Nicotine dependence Plan: -Continue with discharge today as patient has improved and stabilized psychiatrically and is not currently an imminent threat to himself and/or others. Patient will remain at chronically elevated risk for harm to self and/or others due to his impulsivity. -Continue medications: Zoloft 50 mg daily for mood/anxiety. -Patient was counseled on the need for medication compliance and appropriate follow-up at mental health and also primary care for medical issues. Patient verbalized understanding and agreed. -Social work to arrange for and conduct family meeting to ensure safety upon discharge and answer any questions/concerns. Social work also to arrange for patients follow up appointments for psychiatric care along with follow up with primary care provider. -Patient counseled on abstaining from recreational drugs and marijuana and alcohol. Was informed/educated on the adverse effects on their physical and mental health. Patient verbally agreed and understood. -Patient was instructed to return to the hospital or seek immediate medical care if their psychiatric or medical symptoms do worsen or reoccur. Allergies Allergy/AdvReac Type Severity Reaction Status Date / Time amoxicillin Allergy Unknown Verified 11/14/20 03:[address] Glu mg/dL 104 06/01/21 09:44 Hemoglobin A1c 5.3 % (0.0-6.0) 06/01/21 09:44 Triglycerides 87.30 mg/dL (0.00-149.00) 06/01/21 09:44 Cholesterol 183.00 mg/dL (0.00-200.00) 06/01/21 09:44 LDL Cholesterol, Calc 97.7 mg/dL (0.0-131.0) 06/01/21 09:44 VLDL Cholesterol, Calc 17.46 mg/dL (5.00-40.00) 06/01/21 09:44 HDL Cholesterol 67.80 mg/dL (40.00-60.00) H 06/01/21 09:44 Cholesterol/HDL Ratio 2.70 Ratio 06/01/21 09:44 TSH 1.290 mIU/L (0.465-4.680) 06/01/21 09:44 Vital Signs Temp 97.6 F 06/02/21 06:44 Pulse 57 L 06/02/21 06:44 Resp 16 06/02/21 06:44 BP 147/87 06/02/21 06:44 Pulse Ox 95 06/01/21 06:51 Patient Condition at Discharge: Stable Plan - Discharge Summary Discharge Rx Participant: No New Discharge Prescriptions: New Nicotine 14Mg/24Hr Patch [Habitrol] 1 patch TRANSDERM DAILY 14 Days patch Acetaminophen Tab [Tylenol] 650 mg PO Q4HR PRN tab PRN Reason: Pain/Discomfort Sertraline [Zoloft] 50 mg PO DAILY 30 Days tab Continue Albuterol Inhaler (Mhu) [Ventolin Hfa Inhaler (Mhu)] 1 - 2 puff INHALATION R T-Q6H PRN PRN Reason: difficulty breathing Triamterene-Hctz 37.5-25Mg [Dyazide 37.5-25 Capsule] 1 cap PO QAM amLODIPine [Norvasc] mg PO DAILY Ibuprofen [Motrin] 800 mg PO BID PRN PRN Reason: Pain Discontinued busPIRone HCl [Buspar] 10 mg PO BID Albuterol Sulfate [Accuneb] 0 mg INHALATION DIRECTED PRN PRN Reason: difficulty breathing Cyclobenzaprine [Flexeril] 10 mg PO BID 30 Days #60 tab Discharge Medication List Albuterol Inhaler (Mhu) [Ventolin Hfa Inhaler (Mhu)] 1 - 2 puff INHALATION RT- Q6H PRN 06/27/18 [History] Triamterene-Hctz 37.5-25Mg [Dyazide 37.5-25 Capsule] 1 cap PO QAM 06/27/18 [History] Ibuprofen [Motrin] 800 mg PO BID PRN 10/17/18 [History] amLODIPine [Norvasc] mg PO DAILY 10/17/18 [History] Acetaminophen Tab [Tylenol] 650 mg PO Q4HR PRN tab 06/02/21 [Rx] Nicotine 14Mg/24Hr Patch [Habitrol] 1 patch TRANSDERM DAILY 14 Days patch 06/02/21 [Rx] Sertraline [Zoloft] 50 mg PO DAILY 30 Days tab 06/02/21 [Rx] Follow up Appointment(s)/Referral(s): [facility] - 06/07/21 1:30 pm (Rubia ) [facility] [NON-STAFF] - 1 Week Patient Instructions/Handouts: Depression (DC), Anxiety (GEN) Activity/Diet/Wound Care/Special Instructions: Activity and diet as tolerated. Avoid the use of street drugs and alcohol. Take all medications as prescribed. When you are in need of refills on your medications please contact your medical provider and/or outpatient psychiatrist to have this done. Please go to scheduled outpatient appointment for aftercare treatment. If symptoms return or become worse, call the crisis line at and/or go to the nearest emergency room for evaluation Discharge Disposition: HOME SELF-CARE
== END 2021-06-02 12:15 | disposition home or self-care (01) | DRG 881 ==
LOC: 3MHU 05:00
PROVIDERS: ADMIT Psychiatry & Neurology Psychiatry; ATTEND Psychiatry & Neurology Psychiatry
DX: F32.9 Major depressive disorder, single episode, unspecified (principal); F17.210 Nicotine dependence, cigarettes, uncomplicated; F41.9 Anxiety disorder, unspecified; G89.29 Other chronic pain; I10 Essential (primary) hypertension; J45.909 Unspecified asthma, uncomplicated; T42.8X1A Poisoning by antiparkinsonism drugs and other central muscle-tone depressants, accidental (unintentional), initial encounter; T42.8X2A Poisoning by antiparkinsonism drugs and other central muscle-tone depressants, intentional self-harm, initial encounter; Z79.899 Other long term (current) drug therapy
CPT/HCPCS: 80061; 83036; 84443

== ENCOUNTER 2021-08-31 00:22 | Emergency (ER) | payer OTHER ==
[2021-08-31 03:39] VITALS: TEMP 97.1
[2021-08-31] MEDS ORDERED: HYDROmorphone 1 MG/ML 1 ML SYRINGE IM STA (03:57)
[2021-08-31 04:14] LABS: Appearance,Urine Clear (Clear); Bilirubin,Urine Negative (Negative); Blood,Urine Negative (Negative); Color,Urine Light Yellow; Glucose,Urine (UA) Negative (Negative); Ketones,Urine Negative (Negative); Leukocyte Esterase,Urine Negative (Negative); Nitrite,Urine Negative (Negative); Protein,Urine Negative (Negative); Specific Gravity,Urine 1.006 (1.001-1.035); Urobilinogen,Urine <2.0 mg/dL (<2.0)
--- NOTE | 2021-08-31 04:55 | XR ---
EXAM: XR Left Ribs and AP Chest, 3 or More Views CLINICAL HISTORY: fall TECHNIQUE: Frontal and oblique views of the left ribs and frontal view of the chest. COMPARISON: No relevant prior studies available. FINDINGS: Lungs: Unremarkable. No consolidation. Pleural space: Unremarkable. No pneumothorax. Heart: Unremarkable. No cardiomegaly. Mediastinum: Unremarkable. Bones/joints: Unremarkable. No acute fracture. IMPRESSION: Normal left rib x-rays.
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
[2021-08-31] MEDS ORDERED: ACET/COD 300 MG/30 MG STARTER PACK 6 TAB BTL PO STA (05:29)
[2021-08-31] MEDS ORDERED: IBUPROFEN 600 MG STARTER PACK 4 TAB BTL PO STA (05:29)
--- NOTE | 2021-08-31 05:29 | CT ---
EXAM: CT Head Without Intravenous Contrast CLINICAL HISTORY: ITS.REASON CT Reason: fall TECHNIQUE: Axial computed tomography images of the head/brain without intravenous contrast. CTDI is 45.2 mGy and DLP is 981.5 mGy-cm. This CT exam was performed using one or more of the following dose reduction techniques: automated exposure control, adjustment of the mA and/or kV according to patient size, and/or use of iterative reconstruction technique. COMPARISON: No relevant prior studies available. FINDINGS: Brain: Unremarkable. No acute intracranial hemorrhage, edema or abnormal mass-effect. Ventricles: Unremarkable. No ventriculomegaly. Bones/joints: Unremarkable. No acute fracture. Soft tissues: Right parietal scalp soft tissue swelling. Sinuses: Unremarkable as visualized. No acute sinusitis. Mastoid air cells: Unremarkable as visualized. No mastoid effusion. IMPRESSION: No fracture or acute intracranial finding. EXAM: CT Cervical Spine Without Intravenous Contrast CLINICAL HISTORY: ITS.REASON CT Reason: fall TECHNIQUE: Axial computed tomography images of the cervical spine without intravenous contrast. CTDI is 20.4 mGy and DLP is 579.7 mGy-cm. This CT exam was performed using one or more of the following dose reduction techniques: automated exposure control, adjustment of the mA and/or kV according to patient size, and/or use of iterative reconstruction technique. COMPARISON: No relevant prior studies available. FINDINGS: Vertebrae: Unremarkable. No acute fracture. Discs/spinal canal/neural foramina: Extensive degenerative spur formation. At least mild stenosis at C4/C5, C5/C6 and C6/C7. Soft tissues: Unremarkable. IMPRESSION: No acute findings in the cervical spine.
[2021-08-31 05:46] VITALS: BP 147/82; PULSE 78; RESP 18
== END 2021-08-31 05:44 | disposition home or self-care (01) ==
LOC: EC 00:22
DX: S00.03XA Contusion of scalp, initial encounter (principal); Z88.0 Allergy status to penicillin; W19.XXXA Unspecified fall, initial encounter
CPT/HCPCS: 81003; 71101; 72125; 70450; 99284; 96372; J1170

== ENCOUNTER 2021-10-13 07:55 | Emergency (ER) | payer OTHER ==
[2021-10-13 08:00] VITALS: TEMP 98.5
[2021-10-13] MEDS ORDERED: KETOROLAC 15 MG/ML 1 ML VIAL IVP STA (08:12)
[2021-10-13] MEDS ORDERED: FAMOTIDINE 20 MG/2 ML VIAL IV STA (08:13)
--- NOTE | 2021-10-13 08:17 | ED ---
General Adult HPI - General Chief complaint: Abdominal Pain Stated complaint: rt sided abdominal pain Time Seen by Provider: 10/13/21 08:06 Source: patient, RN notes reviewed Mode of arrival: ambulatory Limitations: no limitations - History of Present Illness Initial comments: Patient is a pleasant 46-year-old male presenting to the emergency Department with right upper abdominal pain. Onset of symptoms was around a year ago, symptoms worsen over the past 3 days. Discomfort is waxing and waning. Discomfort is right upper abdomen but does radiate towards the back. No change in symptoms with movement. Occasional nausea, none at this time. No fever. No change of symptoms with food. - Related Data Home Medications Medication Instructions Recorded Confirmed Ibuprofen [Motrin] 800 mg PO TID PRN 10/17/18 10/13/21 Albuterol Nebulized [Ventolin 2.5 mg INHALATION RT-TID PRN 10/13/21 10/13/21 Nebulized] Albuterol Sulfate [Proair Hfa] 2 puff INHALATION RT-QID PRN 10/13/21 10/13/21 Atorvastatin [Lipitor] 20 mg PO DAILY 10/13/21 10/13/21 Cetirizine HCl 10 mg PO DAILY 10/13/21 10/13/21 Fluticasone Nasal [place] [Flonase 1 spr EA NOSTRIL DAILY 10/13/21 10/13/21 Nasal [place]] Losartan Potassium 100 mg PO DAILY 10/13/21 10/13/21 Spironolactone-Hctz 25-25Mg 2 tab PO DAILY 10/13/21 10/13/21 [Aldactazide 25-25Mg] tiZANidine [Zanaflex] 4 mg PO BID PRN 10/13/21 10/13/21 Allergies Allergy/AdvReac Type Severity Reaction Status Date / Time amoxicillin Allergy Rash & Verified 10/13/21 10:17 Nausea & Vomiting Review of Systems ROS Statement: Those systems with pertinent positive or pertinent negative responses have been documented in the HPI. ROS Other: All systems not noted in ROS Statement are negative. Constitutional: Denies: fever Eyes: Denies: eye pain ENT: Denies: ear pain Respiratory: Denies: cough Cardiovascular: Denies: chest pain Endocrine: Denies: fatigue Gastrointestinal: Reports: as per HPI, abdominal pain, nausea. Denies: vomiting Genitourinary: Denies: dysuria Musculoskeletal: Denies: arthralgia Skin: Denies: rash Neurological: Denies: weakness Past Medical History Past Medical History: Asthma, GERD/Reflux, Hypertension History of Any Multi-Drug Resistant Organisms: None Reported Past Surgical History: Cholecystectomy Additional Past Surgical History / Comment(s): WISDOM TEETH REMOVED. PAIN CLINIC PROCEDURES Past Anesthesia/Blood Transfusion Reactions: Family History of Problems w/ Anesthesia Additional Past Anesthesia/Blood Transfusion Reaction / Comment(s): "MOM GETS LOW BLOOD PRESSURE WITH ANESTHESIA " Past Psychological History: No Psychological Hx Reported Smoking Status: Current some day smoker Past Alcohol Use History: Occasional Past Drug Use History: None Reported - Past Family History Brother(s) Family Medical History: Deep Vein Thrombosis (DVT) Father Family Medical History: Cancer Additional Family Medical History / Comment(s): LYMPHOMA General Exam Limitations: no limitations General appearance: alert, in no apparent distress Head exam: Present: normocephalic Eye exam: Present: normal appearance ENT exam: Present: normal oropharynx Neck exam: Present: normal inspection Respiratory exam: Present: normal lung sounds bilaterally Cardiovascular Exam: Present: regular rate, normal rhythm Expanded Peripheral pulses: 2+: Posterior Tibialis (R), Posterior Tibialis (L) GI/Abdominal exam: Present: soft, tenderness (Mild tenderness right upper abdomen), normal bowel sounds. Absent: distended, guarding, rebound, rigid, pulsatile mass Extremities exam: Present: normal inspection Back exam: Present: normal inspection. Absent: tenderness, CVA tenderness (R) Neurological exam: Present: alert Psychiatric exam: Present: normal affect, normal mood Skin exam: Present: normal color Course Vital Signs 10/13/21 07:57 Temperature 98.5 F Pulse Rate 65 Respiratory 20 Rate Blood Pressure 140/80 O2 Sat by Pulse 97 Oximetry Medical Decision Making - Medical Decision Making Patient reevaluated and resting comfortably in bed. Patient updated on results and plan. - Lab Data Result diagrams: 10/13/21 08:14 10/13/21 08:14 Lab Results 10/13/21 10/13/21 10/13/21 Range/Units 08:14 08:14 08:14 WBC 11.2 H (3.8-10.6) k/uL RBC 5.26 (4.30-5.90) m/uL Hgb 16.4 (13.0-17.5) gm/dL Hct 50.0 (39.0-53.0) % MCV 95.0 (80.0-100.0) fL MCH 31.1 (25.0-35.0) pg MCHC 32.8 (31.0-37.0) g/dL RDW 13.1 (11.5-15.5) % Plt Count 193 (150-450) k/uL MPV 8.0 Neutrophils % 78 % Lymphocytes % 10 % Monocytes % 8 % Eosinophils % 3 % Basophils % 1 % Neutrophils # 8.7 H (1.3-7.7) k/uL Lymphocytes # 1.2 (1.0-4.8) k/uL Monocytes # 0.8 (0-1.0) k/uL Eosinophils # 0.3 (0-0.7) k/uL Basophils # 0.1 (0-0.2) k/uL PT 10.4 (9.0-12.0) sec INR 0.9 (<1.2) APTT 23.5 (22.0-30.0) sec Sodium 137 (137-145) mmol/L Potassium 4.4 (3.5-5.1) mmol/L Chloride 105 (98-107) mmol/L Carbon Dioxide 25 (22-30) mmol/L Anion Gap 7 mmol/L BUN 10 (9-20) mg/dL Creatinine 0.79 (0.66-1.25) mg/dL Est GFR (CKD-EPI)AfAm >90 (>60 ml/min/1.73 sqM) Est GFR (CKD-EPI)NonAf >90 (>60 ml/min/1.73 sqM) Glucose 148 H (74-99) mg/dL Calcium 9.3 (8.4-10.2) mg/dL Total Bilirubin 1.2 (0.2-1.3) mg/dL AST 42 (17-59) U/L ALT 22 (4-49) U/L Alkaline Phosphatase 45 (38-126) U/L Total Protein 7.6 (6.3-8.2) g/dL Albumin 4.7 (3.5-5.0) g/dL Amylase 47 (30-110) U/L Lipase 64 (23-300) U/L - Radiology Data Radiology results: report reviewed (CT abdomen and pelvis does not reveal acute abnormality), image reviewed (KUB reveals no acute abnormality.) Disposition Clinical Impression: Abdominal pain Disposition: HOME SELF-CARE Condition: Stable Instructions (If sedation given, give patient instructions): Abdominal Pain (ED) Additional Instructions: Please follow-up to primary care physician in the next couple days for recheck. Return for increased pain, vomiting, fever, change or worsening symptoms or any other concerns. Is patient prescribed a controlled substance at d/c from ED?: No Referrals: Mary Scott MD [Primary Care Provider] - 1-2 days Time of Disposition: 10:44
[2021-10-13 08:31] LABS: Basophils # (A) 0.1 k/uL (0-0.2); Basophils % (A) 1 %; Eosinophils # (A) 0.3 k/uL (0-0.7); Eosinophils % (A) 3 %; HGB 16.4 gm/dL (13.0-17.5); Lymphocytes # (A) 1.2 k/uL (1.0-4.8); Lymphocytes % (A) 10 %; MCH 31.1 pg (25.0-35.0); MCHC 32.8 g/dL (31.0-37.0); Monocytes # (A) 0.8 k/uL (0-1.0); Monocytes % (A) 8 %; Neutrophils # (A) 8.7 k/uL (1.3-7.7); Neutrophils % (A) 78 %; Platelet Count 193 k/uL (150-450); RBC 5.26 m/uL (4.30-5.90); RDW 13.1 % (11.5-15.5); WBC 11.2 k/uL (3.8-10.6)
--- NOTE | 2021-10-13 08:32 | XR ---
EXAMINATION TYPE: XR KUB DATE OF EXAM: 10/13/2021 8:26 AM CLINICAL HISTORY: Right upper quadrant pain. TECHNIQUE: Upright KUB image of the abdomen is obtained. COMPARISON: None. FINDINGS: Scattered gas is seen in non-distended small bowel loops. Gas and fecal material is seen in non-distended colon. Cholecystectomy clips in the right upper quadrant. There is no visceromegaly, p neumoperitoneum, or abnormal calcification appreciated. The lung bases are clear and the osseous stru ctures are intact. Degenerative changes of the visualized spine. IMPRESSION: Overall nonobstructive bowel gas pattern.
[2021-10-13 08:43] LABS: ALT 22 U/L (4-49); African American GFR (CKD) >90 (>60 ml/min/1.73 sqM); Amylase 47 U/L (30-110); Anion Gap 7 mmol/L; Blood Urea Nitrogen 10 mg/dL (9-20); Calcium 9.3 mg/dL (8.4-10.2); Carbon Dioxide 25 mmol/L (22-30); Chloride 105 mmol/L (98-107); Glucose 148 mg/dL (74-99); Lipase 64 U/L (23-300); Non-African American GFR(CKD) >90 (>60 ml/min/1.73 sqM); Sodium 137 mmol/L (137-145)
[2021-10-13 08:44] LABS: INR 0.9 (<1.2); Partial Thromboplastin Time 23.5 sec (22.0-30.0); Prothrombin Time 10.4 sec (9.0-12.0)
[2021-10-13 08:51] LABS: Albumin 4.7 g/dL (3.5-5.0); Potassium 4.4 mmol/L (3.5-5.1); Total Protein 7.6 g/dL (6.3-8.2)
[2021-10-13 08:52] LABS: AST 42 U/L (17-59); Alkaline Phosphatase 45 U/L (38-126); Total Bilirubin 1.2 mg/dL (0.2-1.3)
--- NOTE | 2021-10-13 09:42 | CT ---
EXAMINATION TYPE: CT abdomen pelvis wo con DATE OF EXAM: 10/13/2021 COMPARISON: None HISTORY: 46-year-old male right-sided flank pain CT DLP: 1082.4 mGycm. Automated exposure control for dose reduction was used. TECHNIQUE: Contiguous axial scanning of the abdomen and pelvis without IV contrast. Coronal and sagit kari reconstructions performed. FINDINGS: Heart normal size without pericardial effusion. Hazy dependent atelectasis without pleural effusion. Liver enlarged measuring 20.1 cm. Bile duct dilated at 1.5 cm, probably chronic due to postcholecyste ctomy status. Correlate with alkaline phosphatase and bilirubin levels. Adrenal glands, kidneys, and pancreas show no gross abnormality by noncontrast technique. A couple ca lcified granulomas within the spleen. No dilated small bowel, free fluid, or free air. No mesenteric or retroperitoneal lymphadenopathy. Mild overall stool burden. No perihepatic inflammatory change. Appendix not clearly identified. No se condary findings of acute appendicitis. There is a 1.2 cm cystic nodule within the right paramedian anterior epigastric region within the sub cutaneous adipose layer. Possible sebaceous cyst. Correlate clinically. Bladder distended. Prostate gland mildly enlarged at 4.7 cm wide. Left-sided pelvic phlebolith. No ab normal fluid collection in the pelvis or pelvic lymphadenopathy. Bones: Mild degenerative change of the hips. Degenerative bony ankylosis right SI joint. Baastrup's d isease lumbar spine. Mild to moderate degenerative disc disease throughout and facet arthropathy lowe r lumbar spine. IMPRESSION: 1. No acute inflammatory process identified in the abdomen or pelvis to explain the patient's sympto ms. No renal calculus or hydronephrosis. 2. Bile duct dilated at 1.5 cm, probably chronic due to postcholecystectomy status. Correlate with a lkaline phosphatase and bilirubin levels. 3. A 1.2 cm cystic nodule right paramedian epigastric region within the subcutaneous fat layer, susp ected sebaceous cyst. Clinically correlate.
[2021-10-13] MEDS ORDERED: traMADol 50 MG STARTER PACK 3 TAB BTL PO STA (10:44)
[2021-10-13 10:53] VITALS: BP 112/64; PULSE 84; RESP 16
== END 2021-10-13 10:54 | disposition home or self-care (01) ==
LOC: EC 07:55
DX: F17.200 Nicotine dependence, unspecified, uncomplicated (principal); J45.909 Unspecified asthma, uncomplicated; I10 Essential (primary) hypertension; K21.9 Gastro-esophageal reflux disease without esophagitis; Z88.0 Allergy status to penicillin; Z79.899 Other long term (current) drug therapy
CPT/HCPCS: 80053; 82150; 83690; 85025; 85610; 85730; 74018; 74176; 99284; 96374; 96375; J1885; 36415

== ENCOUNTER → 2021-12-28 | Outpatient (CLI) | payer OTHER ==
--- NOTE | 2021-12-28 15:05 | XR ---
EXAMINATION TYPE: XR thoracic spine 3 views complete DATE OF EXAM: 12/28/2021 Comparison: None Clinical History: 46-year-old male [id number] THOR PAIN Findings: Bulky anterior endplate spondylosis C5-C6. Additional changes of dictation along the lower thoracic s pine. Vertebral body heights are preserved and alignment is maintained. 12 rib-bearing thoracic verte bral bodies. Suspect cholecystectomy clips. All pedicles are visualized. Impression: Bulky anterior endplate spondylosis C5-C6. 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 No vertebr al compression collapse or malalignment.
== END | disposition home or self-care (01) ==
LOC: RADXRYALE 13:41
PROVIDERS: ATTEND Internal Medicine
DX: M47.812 Spondylosis without myelopathy or radiculopathy, cervical region (principal)
CPT/HCPCS: 72072

== ENCOUNTER → 2022-01-31 | Outpatient (CLI) | payer OTHER ==
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
== END | disposition home or self-care (01) ==
LOC: RADMRIMAIN 18:44
PROVIDERS: ATTEND Physician Assistant
DX: M48.02 Spinal stenosis, cervical region (principal); M50.223 Other cervical disc displacement at C6-C7 level; M51.16 Intervertebral disc disorders with radiculopathy, lumbar region; M25.78 Osteophyte, vertebrae; R53.1 Weakness
CPT/HCPCS: 72146; 72148

== ENCOUNTER → 2022-03-20 | Outpatient (CLI) | payer OTHER ==
--- NOTE | 2022-03-20 22:26 | MR ---
MRI CERVICAL SPINE: CLINICAL HISTORY: Neck pain Neck pain TECHNIQUE: Multiplanar, multisequence imaging of the cervical spine is performed without IV contrast. COMPARISON: CT cervical spine August 31, 2021. FINDINGS: Sagittal images of the cervical spine show the craniocervical junction to appear within nor mal limits. There is generalized AP diameter narrowing of the cervical spinal canal with mild cord na rrowing at C6-C7 level at site of peak of reversed normal cervical curvature. Slight reversal of norm al cervical curvature noted. The vertebral body and intravertebral disk heights are normal. The bon e marrow signal intensity is within normal limits. Several levels of prominent anterior spurring seen better on recent CT. Axial images at C2-C3 level appear within normal limits. Axial images at C3-C4 level shows tiny central disc protrusion mildly effaces the anterior thecal sac and uncovertebral facet degenerative changes causing mild left-sided neural foraminal narrowing. Axial images at C4-C5 level shows broad-based central disc protrusion effacing the anterior thecal sa c and causing moderate to severe bilateral neural foraminal narrowing left greater than right. Axial images at C5-C6 level shows marginal spurring causing moderate to advanced left knee and mild r ight-sided neural foraminal narrowing. Axial images at C6-C7 level show broad central disc protrusion effacing the anterior thecal sac and m arginal spurring causing moderate to advanced left greater than right bilateral neural foraminal narr owing. There is some flattening of the cervical spinal cord seen at this level axial image 19. Axial images at C7-T1 level appear within normal limits. IMPRESSION: Slight reversal of normal cervical curvature in the cervical spine. Generalized AP diamet er cervical canal narrowing is seen. There is mass effect on the spinal cord at C6-C7 level noted. Fi ndings prominent for patient's chronologic age. Multilevel degenerative changes of the cervical spine are seen as detailed above.
== END | disposition home or self-care (01) ==
LOC: RADMRIMAIN 21:00
PROVIDERS: ATTEND Neurological Surgery
DX: M47.812 Spondylosis without myelopathy or radiculopathy, cervical region (principal); M50.223 Other cervical disc displacement at C6-C7 level; M48.02 Spinal stenosis, cervical region; M99.71 Connective tissue and disc stenosis of intervertebral foramina of cervical region
CPT/HCPCS: 72141

== ENCOUNTER → 2022-12-30 | Outpatient (CLI) | payer OTHER ==
--- NOTE | 2022-12-30 15:33 | MR ---
MRI thoracic spine without contrast. HISTORY: Spinal stenosis COMPARISON: 01/31/2022 TECHNIQUE: Multiecho multiplanar images of the thoracic spine were obtained without contrast. FINDINGS: The thoracic vertebral segments are normal in height and alignment and there is no fracture subluxati on The disc spaces are well-maintained in height and there is no significant degenerative disc disease. There is no thoracic disc herniation. As on the prior study there is mild posterior thickening ligamentum flavum at T5-6, T6-7 and T7-T8 le vels resulting in minimal to mild spinal stenosis greatest at T5-6 level. The thoracic cord is normal in size and signal intensity. IMPRESSION: 1. No thoracic spine fracture or malalignment. 2. Normal thoracic cord. 3. Minimal to mild spinal stenosis in the midthoracic spine as described above. No interval change co mpared to previous.
== END | disposition home or self-care (01) ==
LOC: RADMRIMAIN 14:01
PROVIDERS: ATTEND Internal Medicine
DX: M99.4 Connective tissue stenosis of neural canal (principal); M48.04 Spinal stenosis, thoracic region
CPT/HCPCS: 72146